=== PATIENT | female | born 1990 | race African-American/Black ===

== ENCOUNTER 2016-12-15 14:05 | Emergency (ER) | payer SELFPAY ==
[~2016-12-15] VITALS: Ht 149.9 cm; Wt 75.0 kg
[2016-12-15 15:28] LABS: HEMATOCRIT 31.3 % (36.0-46.0); MCH 27.4 PG (29.0-34.0); MCHC 35.1 G/DL (30.0-36.0); MCV 77.9 FL (83-99); RBC DIS.WIDTH-SD 42.6 % (39-53); RED BLOOD COUNT 4.02 M/uL (3.80-5.20); WHITE BLOOD COUNT 6.6 K/uL (4.1-10.2)
[2016-12-15 15:38] LABS: BILIRUBIN NEGATIVE; BLOOD NEGATIVE; COLOR YELLOW ((YELLOW)); GLUCOSE (STRIP) NEGATIVE; KETONES 20; LEUKOCYTES NEGATIVE; NITRITE NEGATIVE; PROTEIN (STRIP) NEGATIVE; SPECIFIC GRAVITY 1.025 (1.000-1.030); UROBILINOGEN 0.2 MG/DL (0.2-1.0)
[2016-12-15 15:43] LABS: ADD MIUA? NO; UCUL ADDED? NO
[2016-12-15 15:49] LABS: ANION GAP 7 MEQ/L (2-14)
[2016-12-15 15:52] LABS: GFR ESTIMATE (CALCULATED) > 59 mL/min/
[2016-12-15 15:53] LABS: CHLORIDE 108 mEq/L (99-109); POTASSIUM 3.3 mEq/L (3.7-5.4); SODIUM 139 mEq/L (136-147); UREA NITROGEN (BUN) 6 mg/dL (9-23)
[2016-12-15 15:54] LABS: GLUCOSE 77 mg/dL (70-99)
[2016-12-15 16:27] VITALS: BP 107/68
[2016-12-15 18:19] LABS: HEMATOLOGY COMMENT 1 PLATELET COUNT DOES NOT MATCH ESTIMATE; PLATELET COUNT UNABLE TO REPORT K/uL (156-360)
== END 2016-12-15 16:28 | disposition home or self-care (01) ==
LOC: EME 14:05 → EXP 15:39
PROVIDERS: Nurse Practitioner Family
DX: O99.89 Other specified diseases and conditions complicating pregnancy, childbirth and the puerperium (principal); E87.6 Hypokalemia; D64.9 Anemia, unspecified; Z3A.00 Weeks of gestation of pregnancy not specified
CPT/HCPCS: 80048; 81003; 84702; 85027; 99281; 99283

== ENCOUNTER 2016-12-24 18:31 | Emergency (ER) | payer OTHER ==
[~2016-12-24] VITALS: Ht 149.9 cm; Wt 71.4 kg
[2016-12-24 19:09] LABS: EOSINOPHIL (%) 0.7 % (0-5); EOSINOPHIL COUNT 0.1 K/uL (0-0.3); HEMATOCRIT 29.8 % (36.0-46.0); IMMATURE GRANULOCYTE (%) 0.1 % (0.0-0.7); INSTRUMENT ABS NEUTROPHIL CT 3.9 K/uL; LYMPHOCYTE COUNT 2.4 K/uL (1.0-2.8); MCH 27.2 PG (29.0-34.0); MCHC 34.9 G/DL (30.0-36.0); MCV 77.8 FL (83-99); MEAN PLAT.VOLUME 9.9 uM^3 (9.5-12.4); MONOCYTE COUNT 0.7 K/uL (0-0.8); NEUTROPHIL (%) 54.8 % (45-76); NEUTROPHIL COUNT 3.9 K/uL (1.8-6.4); PLATELET COUNT 293 K/uL (156-360); RBC DIS.WIDTH-CV 15.3 % (11.8-14.6); RED BLOOD COUNT 3.83 M/uL (3.80-5.20); WHITE BLOOD COUNT 7.1 K/uL (4.1-10.2)
[2016-12-24 19:26] LABS: CHLORIDE 108 mEq/L (99-109); POTASSIUM 3.6 mEq/L (3.7-5.4); SODIUM 137 mEq/L (136-147)
[2016-12-24 19:28] LABS: GLUCOSE 80 mg/dL (70-99)
[2016-12-24 19:29] LABS: ANION GAP 6 MEQ/L (2-14)
[2016-12-24 19:32] LABS: GFR ESTIMATE (CALCULATED) > 59 mL/min/; UREA NITROGEN (BUN) 6 mg/dL (9-23)
[2016-12-24 20:00] LABS: QUANTITATIVE HCG 70077.8 MIU/ML
[2016-12-24 21:42] VITALS: BP 117/76
== END 2016-12-24 22:19 | disposition home or self-care (01) ==
LOC: EME 18:31
PROVIDERS: Emergency Medicine
DX: O20.0 Threatened abortion (principal)
CPT/HCPCS: 76801; 80048; 84702; 85025; 86900; 86901; 99281; 99285; J7030

== ENCOUNTER 2017-01-20 22:21 | Emergency (ER) | payer OTHER ==
[~2017-01-20] VITALS: Ht 149.9 cm; Wt 68.7 kg
[2017-01-20 23:26] LABS: HEMATOCRIT 29.3 % (36.0-46.0); MCH 28.4 PG (29.0-34.0); MCHC 35.8 G/DL (30.0-36.0); MCV 79.2 FL (83-99); RBC DIS.WIDTH-CV 14.9 % (11.8-14.6); RBC DIS.WIDTH-SD 43.2 % (39-53); WHITE BLOOD COUNT 7.1 K/uL (4.1-10.2)
[2017-01-21 00:13] LABS: QUANTITATIVE HCG > 225000.0 MIU/ML
[2017-01-21 00:29] LABS: HEMATOLOGY COMMENT 1 PLT CLUMPING PRESENT ON SLIDE-PLTS APPEAR ADEQUATE.; PLATELET COUNT UNABLE TO REPORT K/uL (156-360)
[2017-01-21 00:42] LABS: ADD MIUA? YES; BILIRUBIN NEGATIVE; BLOOD LARGE; COLOR YELLOW ((YELLOW)); GLUCOSE (STRIP) NEGATIVE; KETONES 80; LEUKOCYTES NEGATIVE; NITRITE NEGATIVE; PROTEIN (STRIP) >=500; UROBILINOGEN 0.2 MG/DL (0.2-1.0)
[2017-01-21 00:47] LABS: BACTERIA RARE /HPF; CALCIUM OXALATE CRYSTALS 1+ /HPF; EPITHELIAL CELLS RARE /HPF; GRANULAR CASTS 0-5 /LPF; MUCUS 3+ /LPF; RED BLOOD CELLS TNTC /HPF (0-5); UCUL ADDED? NO; WHITE BLOOD CELLS 0-5 /HPF (0-5)
[2017-01-21 01:11] LABS: CHLORIDE 104 mEq/L (99-109); POTASSIUM 3.5 mEq/L (3.7-5.4); SODIUM 136 mEq/L (136-147)
[2017-01-21 01:12] LABS: GLUCOSE 71 mg/dL (70-99)
[2017-01-21 01:14] LABS: ANION GAP 14 MEQ/L (2-14)
[2017-01-21 01:16] LABS: GFR ESTIMATE (CALCULATED) > 59 mL/min/
[2017-01-21 01:17] LABS: UREA NITROGEN (BUN) 7 mg/dL (9-23)
[2017-01-21] MEDS ORDERED: ZOFRAN8 MG PO (02:33)
[2017-01-21 02:36] VITALS: BP 100/58
== END 2017-01-21 02:40 | disposition home or self-care (01) ==
LOC: EME → EDBD 22:21 → EME 22:21
PROVIDERS: Emergency Medicine
DX: O20.9 Hemorrhage in early pregnancy, unspecified (principal); O99.281 Endocrine, nutritional and metabolic diseases complicating pregnancy, first trimester; E86.0 Dehydration; O21.9 Vomiting of pregnancy, unspecified; Z3A.10 10 weeks gestation of pregnancy
CPT/HCPCS: 76801; 80048; 81003; 84702; 85027; 99281; 99285; J7030

== ENCOUNTER 2017-03-17 14:26 | Outpatient (CLI) | payer OTHER ==
[~2017-03-17] VITALS: Ht 149.9 cm; Wt 70.5 kg
[~2017-03-17 14:26] MED LIST: ZOFRAN8 MG PO
[2017-03-17 16:29] LABS: HEMATOCRIT 28.1 % (36.0-46.0); MCH 29.7 PG (29.0-34.0); MCHC 35.6 G/DL (30.0-36.0); MCV 83.4 FL (83-99); MEAN PLAT.VOLUME 9.7 uM^3 (9.5-12.4); PLATELET COUNT 307 K/uL (156-360); RBC DIS.WIDTH-CV 12.5 % (11.8-14.6); RED BLOOD COUNT 3.37 M/uL (3.80-5.20); WHITE BLOOD COUNT 7.4 K/uL (4.1-10.2)
[2017-03-17 16:31] LABS: ADD MIUA? YES; BILIRUBIN NEGATIVE; BLOOD SMALL; COLOR YELLOW ((YELLOW)); GLUCOSE (STRIP) NEGATIVE; KETONES 80; LEUKOCYTES NEGATIVE; NITRITE NEGATIVE; PROTEIN (STRIP) NEGATIVE; SPECIFIC GRAVITY 1.021 (1.000-1.030); UROBILINOGEN 0.2 MG/DL (0.2-1.0)
[2017-03-17 16:35] LABS: BACTERIA NONE SEEN /HPF; EPITHELIAL CELLS RARE /HPF; MUCUS TRACE /LPF; RED BLOOD CELLS 0-5 /HPF (0-5); UCUL ADDED? NO; WHITE BLOOD CELLS 0-5 /HPF (0-5)
[2017-03-17 16:41] LABS: CHLORIDE 107 mEq/L (99-109); SODIUM 137 mEq/L (136-147)
[2017-03-17 16:43] LABS: GLUCOSE 65 mg/dL (70-99)
[2017-03-17 16:44] LABS: ANION GAP 7 MEQ/L (2-14)
[2017-03-17 16:47] LABS: GFR ESTIMATE (CALCULATED) > 59 mL/min/
[2017-03-17 16:48] LABS: UREA NITROGEN (BUN) 7 mg/dL (9-23)
[2017-03-17 16:57] VITALS: BP 109/60
[2017-03-17 17:00] VITALS: BP 102/61
[2017-03-17 17:09] LABS: QUANTITATIVE HCG 21286.1 MIU/ML
[2017-03-17] MEDS ORDERED: PRENATAL TABLE1 EAC3 PO (17:34)
[2017-03-17] MEDS ORDERED: PROMETRIUM200 M1 VG (18:42)
[2017-03-17 20:14] LABS: CANDIDA DNA PROBE POSITIVE; GARDNERELLA DNA PROBE POSITIVE; INTERNAL CONTROL VALID? YES
[2017-03-19 12:08] LABS: CHLAMYDIA TRACHOMATIS NEGATIVE; NEISSERIA GONORRHOEAE NEGATIVE
== END 2017-03-17 20:00 | disposition home or self-care (01) ==
LOC: EME 14:26 → LDRP-OP 14:26 → EDSTATUS 16:55 → 2WEST 17:00
PROVIDERS: Obstetrics & Gynecology
DX: O26.872 Cervical shortening, second trimester (principal); Z3A.18 18 weeks gestation of pregnancy; O46.92 Antepartum hemorrhage, unspecified, second trimester
CPT/HCPCS: 59025; 76805; 80048; 81003; 84702; 85027; 86900; 86901; 87086; 87480; 87491; 87510; 87591; 87660; 99281; 99284; G0378; J7030; J7120

== ENCOUNTER 2017-04-19 15:43 | Outpatient (CLI) | payer OTHER ==
[~2017-04-19 15:43] MED LIST changes: +PRENATAL TABLE1 EAC3 PO; +PROMETRIUM200 M1 VG
== END 2017-04-19 17:08 | disposition home or self-care (01) ==
LOC: LDRP-OP 15:43 → 2WEST 15:45 → LDRP-OP 09-15 12:22
DX: O26.872 Cervical shortening, second trimester (principal); Z3A.23 23 weeks gestation of pregnancy
CPT/HCPCS: 59025; G0378; J0702

== ENCOUNTER 2017-06-24 11:04 | Inpatient (IN) | payer OTHER ==
[2017-06-24] VITALS (7 sets, daily range): BP systolic 92–108; BP diastolic 53–69
[~2017-06-24] VITALS: Ht 1798.3 cm; Wt 72.0 kg
[2017-06-24 12:21] LABS: EOSINOPHIL (%) 3.8 % (0-5); EOSINOPHIL COUNT 0.5 K/uL (0-0.3); HEMATOCRIT 25.8 % (36.0-46.0); IMMATURE GRANULOCYTE (%) 1.3 % (0.0-0.7); IMMATURE GRANULOCYTE COUNT 0.2 K/uL; INSTRUMENT ABS NEUTROPHIL CT 7.7 K/uL; LYMPHOCYTE COUNT 2.4 K/uL (1.0-2.8); MCH 30.1 PG (29.0-34.0); MCHC 36.8 G/DL (30.0-36.0); MCV 81.6 FL (83-99); MEAN PLAT.VOLUME 9.8 uM^3 (9.5-12.4); MONOCYTE (%) 9.2 % (3-12); MONOCYTE COUNT 1.1 K/uL (0-0.8); NEUTROPHIL (%) 65.4 % (45-76); NEUTROPHIL COUNT 7.7 K/uL (1.8-6.4); PLATELET COUNT 273 K/uL (156-360); RBC DIS.WIDTH-CV 12.8 % (11.8-14.6); RBC DIS.WIDTH-SD 37.8 % (39-53); RED BLOOD COUNT 3.16 M/uL (3.80-5.20); WHITE BLOOD COUNT 11.8 K/uL (4.1-10.2)
[2017-06-24 13:46] LABS: DRSB INTERNAL CONTROL PASS; PROBE CHECK PASS; SPECIMEN PROCESSING CONTROL PASS
[2017-06-25] VITALS (7 sets, daily range): BP systolic 91–116; BP diastolic 53–58
[2017-06-25 13:06] LABS: CHLAMYDIA TRACHOMATIS NEGATIVE; NEISSERIA GONORRHOEAE NEGATIVE
[2017-06-26] VITALS (7 sets, daily range): BP systolic 89–104; BP diastolic 55–60
[2017-06-26 19:54] LABS: AMPHETAMINE NEGATIVE (500 ng/mL); BARBITURATES NEGATIVE (200 ng/mL); BENZODIAZEPINES NEGATIVE (150 ng/mL); COCAINE NEGATIVE (150 ng/mL); INTERNAL CONTROLS VALID? YES; METHADONE NEGATIVE (200 ng/mL); METHAMPHETAMINE NEGATIVE (500 ng/mL); OPIATES (MORPHINE) NEGATIVE (100 ng/mL); OXYCODONE NEGATIVE (100 ng/mL); PHENCYCLIDINE NEGATIVE (25 ng/mL); PROPOXYPHENE NEGATIVE (300 ng/mL); THC CANNABINOIDS NEGATIVE (50 ng/mL); TRICYCLIC ANTIDEPRESSANTS NEGATIVE (300 ng/mL)
[2017-06-27] VITALS (8 sets, daily range): BP systolic 82–101; BP diastolic 47–83
[2017-06-27 07:52] LABS: EOSINOPHIL (%) 4.3 % (0-5); EOSINOPHIL COUNT 0.4 K/uL (0-0.3); IMMATURE GRANULOCYTE (%) 0.7 % (0.0-0.7); IMMATURE GRANULOCYTE COUNT 0.1 K/uL; INSTRUMENT ABS NEUTROPHIL CT 5.5 K/uL; LYMPHOCYTE COUNT 2.5 K/uL (1.0-2.8); MCH 29.8 PG (29.0-34.0); MCHC 36.5 G/DL (30.0-36.0); MCV 81.6 FL (83-99); MEAN PLAT.VOLUME 10.6 uM^3 (9.5-12.4); MONOCYTE (%) 11.9 % (3-12); MONOCYTE COUNT 1.1 K/uL (0-0.8); NEUTROPHIL (%) 56.9 % (45-76); NEUTROPHIL COUNT 5.5 K/uL (1.8-6.4); PLATELET COUNT 263 K/uL (156-360); RBC DIS.WIDTH-SD 38.4 % (39-53); RED BLOOD COUNT 2.82 M/uL (3.80-5.20); WHITE BLOOD COUNT 9.6 K/uL (4.1-10.2)
[2017-06-28 02:29] VITALS: BP 77/49
[2017-06-28 07:17] VITALS: BP 98/55
[2017-06-28 11:36] VITALS: BP 93/55
[2017-06-28 14:56] VITALS: BP 117/67
[2017-06-28 18:13] VITALS: BP 108/65
[2017-06-28 21:13] VITALS: BP 100/59
[2017-06-29 01:16] VITALS: BP 100/60
[2017-06-29 06:05] LABS: EOSINOPHIL (%) 1.4 % (0-5); EOSINOPHIL COUNT 0.2 K/uL (0-0.3); HEMATOCRIT 22.7 % (36.0-46.0); IMMATURE GRANULOCYTE (%) 0.6 % (0.0-0.7); IMMATURE GRANULOCYTE COUNT 0.1 K/uL; LYMPHOCYTE COUNT 1.3 K/uL (1.0-2.8); MCH 29.4 PG (29.0-34.0); MCHC 36.1 G/DL (30.0-36.0); MCV 81.4 FL (83-99); MEAN PLAT.VOLUME 10.5 uM^3 (9.5-12.4); MONOCYTE (%) 10.7 % (3-12); MONOCYTE COUNT 1.2 K/uL (0-0.8); NEUTROPHIL (%) 74.6 % (45-76); PLATELET COUNT 238 K/uL (156-360); RBC DIS.WIDTH-CV 13.1 % (11.8-14.6); RBC DIS.WIDTH-SD 38.8 % (39-53); RED BLOOD COUNT 2.79 M/uL (3.80-5.20); WHITE BLOOD COUNT 10.8 K/uL (4.1-10.2)
[2017-06-29 07:33] VITALS: BP 93/52
[2017-06-29 11:25] VITALS: BP 88/52
[2017-06-29 15:23] VITALS: BP 128/76
[2017-06-29 19:00] VITALS: BP 102/62
[2017-06-30 03:00] VITALS: BP 96/51
[2017-06-30 07:30] LABS: EOSINOPHIL (%) 3.1 % (0-5); EOSINOPHIL COUNT 0.4 K/uL (0-0.3); IMMATURE GRANULOCYTE (%) 0.7 % (0.0-0.7); IMMATURE GRANULOCYTE COUNT 0.1 K/uL; LYMPHOCYTE COUNT 2.2 K/uL (1.0-2.8); MCH 29.2 PG (29.0-34.0); MCHC 35.7 G/DL (30.0-36.0); MCV 81.9 FL (83-99); MONOCYTE (%) 11.3 % (3-12); MONOCYTE COUNT 1.4 K/uL (0-0.8); NEUTROPHIL (%) 66.1 % (45-76); PLATELET COUNT 253 K/uL (156-360); RBC DIS.WIDTH-CV 13.3 % (11.8-14.6); RBC DIS.WIDTH-SD 39.4 % (39-53); RED BLOOD COUNT 2.81 M/uL (3.80-5.20); WHITE BLOOD COUNT 12.1 K/uL (4.1-10.2)
[2017-06-30 08:11] VITALS: BP 110/62
[2017-06-30 11:57] VITALS: BP 106/58
[2017-06-30 14:57] VITALS: BP 110/59
[2017-06-30 19:00] VITALS: BP 112/67
[2017-07-01 03:14] VITALS: BP 93/55
[2017-07-01 07:51] VITALS: BP 108/63
[2017-07-01 12:00] VITALS: BP 126/75
[2017-07-01] MEDS ORDERED: ENDOCET 5-3251 EACH PO (12:19)
[2017-07-01] MEDS ORDERED: IBUPROFEN800 MG PO (12:19)
== END 2017-07-01 13:45 | disposition home or self-care (01) | DRG 765 ==
LOC: LDRP-OP → 2WEST 11:05 → LDRP-OP 09-15 21:56
PROVIDERS: Advanced Practice Midwife; Obstetrics & Gynecology
PROC: 10D00Z1 Extraction of Products of Conception, Low, Open Approach (ICD-10-PCS; principal; 2017-06-24)
DX: O76 Abnormality in fetal heart rate and rhythm complicating labor and delivery (principal); O42.913 Preterm premature rupture of membranes, unspecified as to length of time between rupture and onset of labor, third trimester; O99.02 Anemia complicating childbirth; O60.14X0 Preterm labor third trimester with preterm delivery third trimester, not applicable or unspecified; D50.9 Iron deficiency anemia, unspecified; Z37.0 Single live birth; Z3A.32 32 weeks gestation of pregnancy; O36.5930 Maternal care for other known or suspected poor fetal growth, third trimester, not applicable or unspecified; O99.213 Obesity complicating pregnancy, third trimester; E66.9 Obesity, unspecified; Z68.33 Body mass index [BMI] 33.0-33.9, adult
CPT/HCPCS: 76805; 76818; 85025; 86850; 86900; 86901; 86920; 87081; 87491; 87591; 87653; 88307; 90686; J0290; J0690; J1050; J2274; J2405; J2590; J3010; J7050; J7120